=== PATIENT | male | born 1955 | race Caucasian/White ===

== ENCOUNTER 2021-09-06 15:33 | Observation (INO) | payer MEDICARE, BC, OTHER ==
[~2021-09-06] VITALS: Ht 170.2 cm; Wt 78.8 kg
[2021-09-06 17:33] LABS: BASO % 0.7 % (0.0-1.0); EOS # 0.2 10^3/uL (0.0-0.5); EOS % 3.3 % (0.0-3.0); HEMOGLOBIN 13.7 g/dl (13.5-17.5); LYMPH # 1.1 10^3/uL (1.5-5.0); LYMPH % 20.4 % (24.0-44.0); MEAN CORPUSCULAR HEMOGLOBIN 31.5 pg (27.0-33.0); MEAN CORPUSCULAR HGB CONC 34.3 g/dl (32.0-36.5); MONO # 0.6 10^3/uL (0.0-0.8); MONO % 9.9 % (2.0-8.0); NEUTROPHILS # 3.6 10^3/uL (1.5-8.5); NEUTROPHILS % 65.3 % (36.0-66.0); PLATELET COUNT, AUTOMATED 179 10^3/uL (150-450); RED BLOOD COUNT 4.35 10^6/uL (4.30-6.10); WHITE BLOOD COUNT 5.5 10^3/uL (4.0-10.0)
[2021-09-06 17:42] LABS: INR 0.88; PROTHROMBIN TIME 12.3 SECONDS (12.7-14.5)
[2021-09-06 17:43] LABS: PARTIAL THROMBOPLASTIN TIME 28.3 SECONDS (25.9-37.0)
[2021-09-06 18:02] LABS: CK-MB VALUE MASS 2.1 NG/ML (<3.6); MB/CK RELATIVE INDEX 1.51 (< OR =4)
[2021-09-06 18:08] LABS: ALBUMIN 3.6 GM/DL (3.2-5.2); ALT/SGPT 40 U/L (12-78); BILIRUBIN,DIRECT 0.2 MG/DL (0.0-0.2); BLOOD UREA NITROGEN 25 MG/DL (7-18); CALCIUM LEVEL 8.2 MG/DL (8.8-10.2); CARBON DIOXIDE LEVEL 26 MEQ/L (21-32); CHLORIDE LEVEL 111 MEQ/L (98-107); CREATININE FOR GFR 1.01 MG/DL (0.70-1.30); GLOMERULAR FILTRATION RATE > 60.0 (>49); GLUCOSE, FASTING 90 MG/DL (70-100); POTASSIUM SERUM 4.4 MEQ/L (3.5-5.1); SODIUM LEVEL 144 MEQ/L (136-145); TOTAL PROTEIN 6.5 GM/DL (6.4-8.2)
[2021-09-06 18:23] LABS: RSV AMPLIFICATION NEGATIVE (NEGATIVE)
[2021-09-06] MEDS ORDERED: [UNRECOGNIZED DRUG - OTHER] PO (18:39)
[2021-09-06] MEDS ORDERED: LOSA100T45 PO (18:39)
[2021-09-06] MEDS ORDERED: MSM/CAP PO (18:39)
[2021-09-06] MEDS ORDERED: TUMERIC PO (18:39)
[2021-09-06] MEDS ORDERED: ASPI-161 PO (18:39)
[2021-09-06] MEDS ORDERED: D31000TA2 PO (18:39)
[2021-09-06] MEDS ORDERED: LUTE6CAP9 PO (18:39)
[2021-09-06] MEDS ORDERED: COQ1200C3 PO (18:39)
[2021-09-06] MEDS ORDERED: OCEA200T2 PO (18:39)
[2021-09-06] MEDS ORDERED: BYST5TAB2 PO (18:39)
[2021-09-06] MEDS ORDERED: [UNRECOGNIZED DRUG - OTHER] PO (18:39)
[2021-09-06] MEDS ORDERED: OMEGCAP4 PO (18:39)
[2021-09-06] MEDS ORDERED: HOME MED LIST COMPLETE! XX SCH (18:45)
[2021-09-06] MEDS ORDERED: MAALOX 30 ML SUSP *UDC PO PRN (19:05)
[2021-09-06] MEDS ORDERED: MOM 30ML SUSPENSION UDC PO PRN (19:05)
[2021-09-06] MEDS ORDERED: ACETAMINOPHEN TAB 650MG DOSE (2X325MG) PO PRN (19:05)
[2021-09-06 20:18] LABS: CHOLESTEROL RISK RATIO 2.98 (<5)
[2021-09-06] MEDS ORDERED: PROHANCE 279.3MG/ML 15ML VIAL As Ordered ONE (20:33)
[2021-09-06 20:38] LABS: HEMOGLOBIN A1c 5.7 %
[2021-09-06 21:00] VITALS: BP 164/95
[2021-09-06] MEDS ORDERED: ATORVASTATIN 10 MG TAB PO SCH (21:00)
[2021-09-06] MEDS ORDERED: ASPIRIN 81MG ENTERIC TABLET PO SCH (21:00)
[2021-09-06] MEDS ORDERED: LOSARTAN 50MG TABLET PO SCH (21:00)
[2021-09-06] MEDS: DOCUSATE SODIUM 100MG CAPSULE PO SCH (21:00)
[2021-09-06] MEDS ORDERED: NEBIVOLOL 5 MG TAB (BYSTOLIC) PO SCH (21:00)
[2021-09-06 22:26] VITALS: BP 147/89
[2021-09-07 06:00] VITALS: BP 122/72
[2021-09-07 06:30] LABS: HEMATOCRIT 39.4 % (42.0-52.0); HEMOGLOBIN 13.2 g/dl (13.5-17.5); MEAN CORPUSCULAR HEMOGLOBIN 31.1 pg (27.0-33.0); MEAN CORPUSCULAR HGB CONC 33.5 g/dl (32.0-36.5); MEAN CORPUSCULAR VOLUME 92.7 fl (80.0-96.0); PLATELET COUNT, AUTOMATED 160 10^3/uL (150-450); RED BLOOD COUNT 4.25 10^6/uL (4.30-6.10); WHITE BLOOD COUNT 5.1 10^3/uL (4.0-10.0)
[2021-09-07 06:50] LABS: BLOOD UREA NITROGEN 18 MG/DL (7-18); CALCIUM LEVEL 8.6 MG/DL (8.8-10.2); CARBON DIOXIDE LEVEL 27 MEQ/L (21-32); CHLORIDE LEVEL 110 MEQ/L (98-107); CREATININE FOR GFR 0.98 MG/DL (0.70-1.30); GLOMERULAR FILTRATION RATE > 60.0 (>49); GLUCOSE, FASTING 97 MG/DL (70-100); MAGNESIUM LEVEL 2.3 MG/DL (1.8-2.4); POTASSIUM SERUM 4.3 MEQ/L (3.5-5.1); SODIUM LEVEL 142 MEQ/L (136-145)
[2021-09-07] MEDS: DOCUSATE SODIUM 100MG CAPSULE PO SCH (09:00)
[2021-09-07] MEDS ORDERED: LIPI20TA PO (09:45)
== END 2021-09-07 14:30 | disposition home or self-care (01) ==
LOC: EDBD 15:33 → M ED 15:33 → M ED INP 19:05 → M MSPAV 21:00
PROVIDERS: ADMIT Family Medicine; ATTEND General Practice
DX: G45.9 Transient cerebral ischemic attack, unspecified (principal); R51.9 Headache, unspecified; H53.9 Unspecified visual disturbance; R20.0 Anesthesia of skin; I10 Essential (primary) hypertension; I63.81 Other cerebral infarction due to occlusion or stenosis of small artery; R00.2 Palpitations; Z79.899 Other long term (current) drug therapy; Z79.82 Long term (current) use of aspirin
CPT/HCPCS: 36415; 70450; 70544; 70553; 71045; 80048; 80061; 80076; 82550; 82553; 83036; 83735; 84443; 84484; 85025; 85027; 85610; 85730; 87631; 93005; 93041; 93880; 94760; 97161; 97530; 99285; A9576; G0378